=== PATIENT | male | born 1975 ===

== ENCOUNTER 2021-11-18 20:11 | Inpatient (IN) | payer OTHER ==
--- OUTSIDE RECORDS SUMMARY | 2021-11-18 20:15 | XMS REPORT | Continuity of Care Document ---
:1975 Author Organization [facility] t Address [address] [place] [address] [place] [id number] Care Team Providers Name Role Phone PCP, PATIENT DOES NOT HAVE A Primary Care Physician Unavailanisa ROSENTHAL Attending Clinician Unavailable ARIADNA Attending Clinician Unavailable Cornelia PARKINSON Attending Clinician Unavailable Vianey JIMÉNEZ Attending Clinician Unavailable Cornelia PARKINSON Admitting Clinician Unavailable Payers Payer Name Policy Type Policy Number Effective Date Expiration Date S [facility] [id number] 00:00:00 MEDICAID [place] PENDING 2019 2019 PENDING 00:00:00 00:00:00 Problems This patient has no known problems. Allergies, Adverse Reactions, Alerts Allergy Allergy Status Severity Reaction(s) Onset Inactive Treating Comm ents Source Name Type Date Date Clinician NO KNOWN Drug Active [facility] ALLERGIE [facility] Medications This patient has no known medications. Procedures This patient has no known procedures. Encounters Start End Encounter Admission Attending Care Care Encounter Source Date/Time Date/Time Type Type Clinicians Facility Department ID 2020-03-05 2020-03-05 Emergency X ROHAN ROSENTHAL [facility] ERT 1 [id number] [facility] 17:53:15 17:53:15 ROHAN ROSENTHAL [facility] 2020-01-01 2020-01-01 Emergency X TESHA RUST ERT [id number] [facility] 20:31:10 23:55:00 CRISTOPHER [facility] 2019-11-21 2019-11-21 Emergency X JESSY RUST ERT [id number] [facility] 13:01:31 15:30:00 JACKIE [facility] Results This patient has no known results.
[2021-11-18] MEDS ORDERED: MORPHINE 4 MG/ML SYR ONE (20:49)
[2021-11-18] MEDS ORDERED: FAMOTIDINE 20 MG/2 ML VIAL IV ONE (20:49)
[2021-11-18] MEDS ORDERED: ONDANSETRON 4 MG/2 ML VIAL ONE (20:49)
[2021-11-18 20:51] LABS: Protime INR 0.95
[2021-11-18 20:56] LABS: Absolute Lymphocytes (CBC) 3.4 K/uL (0.7-4.9); Hematocrit 45.7 % (39.6-49.0); Lymphocytes % 29.2 % (15.3-44.8); MPV 7.9 fL (7.6-11.3); RBC Red Blood Cell Count 5.09 M/uL (4.33-5.43)
--- NOTE | 2021-11-18 21:24 | RAD REPORT ---
EXAM DESCRIPTION: Dorothy Single View11/18/2021 9:19 pm CLINICAL HISTORY: Chest pain COMPARISON: none FINDINGS: The lungs appear clear of acute infiltrate. The heart is normal size IMPRESSION: No acute abnormalities displayed
[2021-11-18 21:30] LABS: ALT/SGPT 55 U/L (12-78); AST/SGOT 18 U/L (15-37); Albumin 3.7 g/dL (3.4-5.0); Alkaline Phosphatase 102 U/L (45-117); BUN Blood Urea Nitrogen 18 mg/dL (7-18); Bicarbonate 24 mmol/L (21-32); Bilirubin Direct < 0.1 mg/dL (0-0.2); Bilirubin Total 0.3 mg/dL (0.2-1.0); Glucose Level 200 mg/dL (74-106); Lipase 56 U/L (73-393); NT PRO-BNP 49 pg/mL (<125); Potassium 3.6 mmol/L (3.5-5.1); Protein, Total 7.7 g/dL (6.4-8.2); Sodium Level 136 mmol/L (136-145)
[2021-11-18 22:52] LABS: SARS-COV-2 RT PCR POSITIVE (NEGATIVE)
--- NOTE | 2021-11-19 01:09 | EDPHYS ---
Physician Documentation [facility] Name: Sandro Sepulveda Age: 46 yrs Sex: Male : 1975 Arrival Date: 11/18/2021 Time: 20:13 Bed 23 Private MD: ED Physician Levy Pulido HPI: 11/18 20:50 This 46 yrs old Male presents to ER via Ambulatory with complaints of Nausea/Vomiting, cp Chest Pain > 30 y/o, Epigastric Pain. 20:50 The patient or guardian reports chest pain that is located primarily in the substernal cp area, epigastric area. 20:50 Onset: suddenly, today, at 14:00. cp 20:50 The pain radiates to Associated signs and symptoms: Pertinent positives: nausea and cp vomiting, Pertinent negatives: constipation, diarrhea, shortness of breath, testicular pain. The symptoms are described as constant. Duration: The patient or guardian reports a single episode, that is still ongoing, and worsening. Historical: - Allergies: 20:22 No Known Allergies; sf1 - Home Meds: 20:22 atorvastatin 40 mg oral tab [Active]; aspirin 81 mg Oral tab [Active]; sf1 - PMHx: 20:22 DVT; hIGH CHOLESTEROL; sf1 - PSHx: 20:22 None; sf1 - Immunization history:: Flu vaccine is not up to date. - Social history:: Smoking status: Patient denies any tobacco usage or history of. ROS: 20:50 Constitutional: Negative for body aches, chills, fever, poor PO intake. cp 20:50 Cardiovascular: Positive for chest pain, Negative for edema, palpitations. cp 20:50 Eyes: Negative for injury, pain, redness, and discharge. cp 20:50 ENT: Negative for ear pain, sore throat, difficulty swallowing, difficulty handling secretions. 20:50 Respiratory: Negative for cough, shortness of breath, wheezing. 20:50 Abdomen/GI: Positive for abdominal pain, nausea and vomiting, of the epigastric area. 20:50 Back: Positive for radiated pain. 20:50 : Negative for urinary symptoms, testicular pain 20:50 Neuro: Negative for altered mental status, headache, weakness. 20:50 All other systems are negative. Exam: 20:33 ECG was reviewed by the Attending Physician. cp 20:55 Constitutional: The patient appears in no acute distress, alert, awake, cp non-diaphoretic, non-toxic, well developed, well nourished, obese, in obvious pain, uncomfortable. 20:55 Head/Face: Normocephalic, atraumatic. cp 20:55 Eyes: Periorbital structures: appear normal, Conjunctiva: normal, no exudate, no injection, Sclera: no appreciated abnormality, Lids and lashes: appear normal, bilaterally. 20:55 ENT: External ear(s): are unremarkable, Nose: is normal, Mouth: Lips: moist, Oral mucosa: moist, Posterior pharynx: Airway: no evidence of obstruction, patent. 20:55 Neck: ROM/movement: is normal, is supple, without pain, no range of motions limitations. 20:55 Chest/axilla: Inspection: normal, Palpation: is normal, no crepitus, no tenderness. 20:55 Cardiovascular: Rate: tachycardic, Rhythm: regular, Heart sounds: murmur, not appreciated, Edema: is not appreciated, JVD: is not appreciated. 20:55 Respiratory: the patient does not display signs of respiratory distress, Respirations: normal, no use of accessory muscles, no retractions, labored breathing, is not present, Breath sounds: are clear throughout, no decreased breath sounds, no stridor, no wheezing. 20:55 Abdomen/GI: Inspection: obese Bowel sounds: active, all quadrants, Palpation: soft, in all quadrants, moderate abdominal tenderness, in the epigastric area, rebound tenderness, is not appreciated, voluntary guarding, is elicited in the epigastric area. 20:55 Back: CVA tenderness, is absent. 20:55 Neuro: Orientation: to person, place \\T\\ time. Mentation: is normal, Motor: moves all fours, strength is normal, Sensation: is normal. Vital Signs: 20:21 BP 122 / 75; Pulse 100; Resp 22; Temp 97.2(T); Pulse Ox 100% on R/A; Weight 108.86 kg; sf1 Height 5 ft. 7 in. (170.18 cm); Pain 10/10; 21:00 BP 127 / 75; Pulse 75; Resp 18; Pulse Ox 98% on R/A; sm5 22:15 BP 120 / 77; Pulse 71; Resp 17; Pulse Ox 100% on R/A; 5 11/19 01:46 BP 119 / 67; Pulse 75; Resp 20; Pulse Ox 99% on R/A; 5 11/18 20:21 Body Mass Index 37.59 (108.86 kg, 170.18 cm) sf1 MDM: 11/18 20:42 Patient medically screened. cp 21:00 Differential diagnosis: abnormal EKG, acute myocardial infarction, coronary artery cp disease cholecystitis, Cholelithiasis pancreatitis, pneumonia, pneumothorax, pancreatitis, Peptic Ulcer Disease, Perf. Duodenal Ulcer, Perf. Gastric Ulcer, Ureterolithiasis, urinary tract infection. 11/19 00:45 Physician consultation: Dakota Black MD was called at 00:45, was contacted at 00:45, cp regarding consult, patient's condition, and will see patient in inpatient room, later today, would like admission per Dr. Raji Quiros. 01:00 Data reviewed: vital signs, nurses notes, lab test result(s), EKG, radiologic studies, cp CT scan, plain films, ultrasound. 01:00 Test interpretation: by ED physician or midlevel provider: ECG, plain radiologic cp studies. 01:15 Physician consultation: Cuauhtemoc GIBSON was called at 01:05, was contacted at 01:05, cp regarding admission, to the telemetry unit. patient's condition. 11/18 20:32 Order name: Basic Metabolic Panel cp 11/18 20:32 Order name: CBC with Diff; Complete Time: 21:50 cp 11/18 21:50 Interpretation: Normal except: WBC 11.60. cp 11/18 20:32 Order name: LFT's; Complete Time: 21:50 cp 11/19 00:39 Interpretation: Normal except: GLOB 4.0; A/G 0.9. cp 11/18 20:32 Order name: Magnesium; Complete Time: 21:50 cp 11/18 20:32 Order name: NT PRO-BNP; Complete Time: 21:50 cp 11/18 20:32 Order name: PT-INR; Complete Time: 21:50 cp 11/18 20:32 Order name: Troponin HS; Complete Time: 21:50 cp 11/18 20:32 Order name: Lipase; Complete Time: 21:50 cp 11/18 20:32 Order name: Basic Metabolic Panel; Complete Time: 21:50 EDMS 11/19 00:53 Interpretation: Normal except: GLUC 200. 11/18 20:51 Order name: COVID-19/FLU A+B (Document "Date of Onset" if Symptomatic); Complete Time: cp 00:39 11/19 00:39 Interpretation: Reviewed. 11/19 06:13 Order name: Troponin High Sensitivity EDMN 11/19 06:13 Order name: C-Reactive Protein EDMN 11/19 06:13 Order name: Ferritin EDMN 11/19 07:18 Order name: Procalcitonin EDMN 11/18 20:32 Order name: XRAY Chest (1 view); Complete Time: 21:50 11/18 21:52 Order name: CT Aorta for Dissection 11/18 23:39 Order name: US Abdomen Limited: RUQ 11/19 07:58 Order name: Hemoglobin A1c EDMN 11/19 08:01 Order name: Glucose, Ancillary Testing EDMN 11/19 11:31 Order name: Glucose, Ancillary Testing EDMN 11/19 16:40 Order name: Glucose, Ancillary Testing EDMN 11/19 22:20 Order name: Glucose, Ancillary Testing EDMN 11/20 03:24 Order name: CBC with Automated Diff EDMN 11/20 03:52 Order name: Comprehensive Metabolic Panel EDMN 11/20 03:52 Order name: Phosphorus EDMN 11/20 03:52 Order name: Lipid Profile EDMN 11/20 03:52 Order name: T4 Free EDMN 11/20 03:52 Order name: Magnesium EDMN 11/20 03:52 Order name: Thyroid Stimulating Hormone EDMN 11/20 09:01 Order name: Glucose, Ancillary Testing EDMN 11/18 20:24 Order name: EKG - Nurse/Tech; Complete Time: 20:30 sf1 11/18 20:32 Order name: EKG; Complete Time: 20:32 cp 11/18 20:32 Order name: Cardiac monitoring; Complete Time: 20:42 cp 11/18 20:32 Order name: IV Saline Lock; Complete Time: 20:42 11/18 20:32 Order name: Labs collected and sent; Complete Time: 20:43 11/18 20:32 Order name: O2 Per Protocol; Complete Time: 20:43 11/18 20:32 Order name: O2 Sat Monitoring; Complete Time: 20:43 11/19 01:08 Order name: NPO; Complete Time: 01:52 cp 11/19 01:13 Order name: CONS Physician Consult EDMS EC/28 20:33 Rate is 67 beats/min. Rhythm is regular. MT interval is normal. QRS interval is cp prolonged at 102 msec. QT interval is normal. T waves are Inverted in leads III, V4, V5, V6. Interpreted by me. Reviewed by me. Administered Medications: 20:53 Drug: morphine 4 mg Route: IVP; Site: right forearm; sm5 22:19 Follow up: Response: Pain is decreased sm5 20:53 Drug: Zofran (Ondansetron) 4 mg Route: IVP; Site: right forearm; sm5 22:19 Follow up: Response: Vomiting decreased sm5 20:53 Drug: Pepcid (famotidine) 20 mg Route: IVP; Site: right forearm; sm5 22:19 Follow up: Response: No adverse reaction sm5 11/19 01:40 Drug: Zosyn (piperacillin-tazobactam) 3.375 grams Route: IVPB; Infused Over: 60 mins; sm5 Site: right forearm; Disposition: 19:08 Co-signature as Attending Physician, Keron Lott MD. 7 Disposition Summary: 11/19/21 01:09 Hospitalization Ordered Hospitalization Status: Inpatient Admission cp Condition: Stable cp Problem: new cp Symptoms: have improved cp Bed/Room Type: Standard cp Location: [facility] ER HOLD(11/19/21 01:17) Room Assignment: ERHOLD-(11/19/21 01:17) Provider: Raji Quiros(11/19/21 02:51) cp Diagnosis - Chest pain, unspecified cp - Epigastric pain cp Discharge Instructions: - Discharge Summary Sheet lissette Forms: - Medication Reconciliation Form cp - SBAR form cp Prescriptions: - Tylenol-Codeine #3 300 mg-30 mg Oral - take 1 tablet by ORAL route every 6 hours; 15 tablet; Refills: 0, Product lissette Selection Permitted Signatures: [facility] Leonor Melgar RN RN mw Page, Corey, PA PA cp Holmes, Maurice, MD MD 7 Araseli Ball RN RN 5 Tiara Carr RN RN 1 Corrections: (The following items were deleted from the chart) 00:53 11/18 21:50 Normal except: GLUC 200; GFR 82. cp 11/19 01:09 01:09 Acute cholecystitis [facility] : 01:09 Telemetry/MedSurg (Inpatient) [facility] : 01:09 mw 02:51 01:09 Cuauhtemoc Duran cp
--- NOTE | 2021-11-19 01:09 | ER ---
Nurse's Notes [facility] Name: Sandro Sepulveda Age: 46 yrs Sex: Male : 1975 Arrival Date: 11/18/2021 Time: 20:13 Bed 23 Private MD: Diagnosis: Chest pain, unspecified;Epigastric pain Presentation: 11/18 20:21 Chief complaint: Patient states: pain in the middle of the chest started at 2pm and sf1 radiates around the back. Coronavirus screen: Vaccine status: Patient reports receiving the 2nd dose of the covid vaccine. Client denies travel out of the [place] in the last 14 days. Ebola Screen: Patient negative for fever greater than or equal to 101.5 degrees Fahrenheit, and additional compatible Ebola Virus Disease symptoms Patient denies exposure to infectious person. Patient denies travel to an Ebola-affected area in the 21 days before illness onset. Initial Sepsis Screen: Does the patient meet any 2 criteria? No. Patient's initial sepsis screen is negative. Does the patient have a suspected source of infection? No. Patient's initial sepsis screen is negative. Risk Assessment: Do you want to hurt yourself or someone else? Patient reports no desire to harm self or others. Onset of symptoms was November 18, 2021 at 14:00. 20:21 Method Of Arrival: Ambulatory 1 20:21 Acuity: LATA 3 sf1 Triage Assessment: 20:22 General: Appears uncomfortable, Behavior is cooperative, appropriate for age, restless. sf1 Pain: Complains of pain in mid-sternal area. GI: Reports nausea, vomiting. Historical: - Allergies: 20:22 No Known Allergies; sf1 - Home Meds: 20:22 atorvastatin 40 mg oral tab [Active]; aspirin 81 mg Oral tab [Active]; sf1 - PMHx: 20:22 DVT; hIGH CHOLESTEROL; sf1 - PSHx: 20:22 None; sf1 - Immunization history:: Flu vaccine is not up to date. - Social history:: Smoking status: Patient denies any tobacco usage or history of. Screenin:24 Abuse screen: Denies threats or abuse. Nutritional screening: No deficits noted. sf1 Tuberculosis screening: No symptoms or risk factors identified. Fall Risk None identified. Assessment: 20:58 General: Appears in no apparent distress. Behavior is cooperative. Pain: Complains of sm5 pain in chest and mid-sternal area, back. Neuro: No deficits noted. Level of Consciousness is awake, alert, Oriented to person, place, time, situation. Cardiovascular: Reports chest pain, nausea, vomiting. Respiratory: No deficits noted. Airway is patent Trachea midline Respiratory effort is even, labored. GI: Abdomen is obese, Pt is actively vomiting Abdomen is tender to palpation. 22:03 Reassessment: Patient states symptoms have improved. 5 23:05 Reassessment: No changes from previously documented assessment. sm5 11/19 00:03 Reassessment: No changes from previously documented assessment. Patient and/or family 5 updated on plan of care and expected duration. Pain level reassessed. 01:21 Reassessment: No changes from previously documented assessment. 5 Vital Signs: 11/18 20:21 BP 122 / 75; Pulse 100; Resp 22; Temp 97.2(T); Pulse Ox 100% on R/A; Weight 108.86 kg; sf1 Height 5 ft. 7 in. (170.18 cm); Pain 10/10; 21:00 BP 127 / 75; Pulse 75; Resp 18; Pulse Ox 98% on R/A; sm5 22:15 BP 120 / 77; Pulse 71; Resp 17; Pulse Ox 100% on R/A; sm5 11/19 01:46 BP 119 / 67; Pulse 75; Resp 20; Pulse Ox 99% on R/A; sm5 11/18 20:21 Body Mass Index 37.59 (108.86 kg, 170.18 cm) sf1 ED Course: 11/18 20:13 Patient arrived in ED. wm 20:22 Triage completed. sf1 20:22 Arm band placed on. sf1 20:30 Tiara Carr RN is Primary Nurse. sf1 20:31 Levy Galeas PA is PHCP. cp 20:31 Keron Lott MD is Attending Physician. cp 20:38 Inserted saline lock: 20 gauge in right forearm, using aseptic technique. Blood 5 collected. 20:42 Basic Metabolic Panel Sent. ww 20:42 Basic Metabolic Panel Sent. ww 20:43 CBC with Diff Sent. ww 20:43 LFT's Sent. ww 20:43 Magnesium Sent. ww 20:43 NT PRO-BNP Sent. ww 20:43 PT-INR Sent. ww 20:43 Troponin HS Sent. ww 20:44 Lipase Sent. ww 21:00 Patient has correct armband on for positive identification. Bed in low position. Call [facility] light in reach. Side rails up X2. 21:00 sports book writer on. Pulse ox on. NIBP on. [facility] 21:18 XRAY Chest (1 view) In Process Unspecified. EDMS 22:54 CT Aorta for Dissection In Process Unspecified. EDMS 11/19 00:24 US Abdomen Limited: RUQ In Process Unspecified. EDMS 01:08 Cuauhtemoc Duran PA is Hospitalizing Provider. cp 01:42 No provider procedures requiring assistance completed. [facility] 02:51 Hospitalizing Provider role handed off by Cuauhtemoc Duran PA 02:51 Raji Quiros is Hospitalizing Provider. cp 09:34 INTERPRET ARGENTINE - SAMOAN. [facility] 09:36 Warm blanket given. [facility] 11/20 07:08 Primary Nurse role handed off by Tiara Carr RN 09:26 Attending Physician role handed off by Keron Lott MD [facility] 09:26 Levy Pulido MD is Attending Physician. [facility] 10:02 TRANSLATED FOR NURSE DISCHARGE INSTRUCTION. [facility] Administered Medications: 11/18 20:53 Drug: morphine 4 mg Route: IVP; Site: right forearm; 5 22:19 Follow up: Response: Pain is decreased 5 20:53 Drug: Zofran (Ondansetron) 4 mg Route: IVP; Site: right forearm; 5 22:19 Follow up: Response: Vomiting decreased [facility] 20:53 Drug: Pepcid (famotidine) 20 mg Route: IVP; Site: right forearm; 5 22:19 Follow up: Response: No adverse reaction [facility] 11/19 01:40 Drug: Zosyn (piperacillin-tazobactam) 3.375 grams Route: IVPB; Infused Over: 60 mins; [facility] Site: right forearm; Outcome: 01:09 Decision to Hospitalize by Provider. 11/20 10:21 Patient left the ED. ll1 Signatures: Dispatcher [employer] [facility] Levy Pulido MD MD cha Page, Corey, PA [place] Kaela Perez [facility] Mirela Malone Lynsay, RN RN ll1 Emani Antonio Sarah, RN RN sm5 Sanjana Rocha, RN RN ww Tiara Carr, RN RN sf1
[2021-11-19] MEDS ORDERED: NA CHLORIDE 0.9% 100 ML ONE ×3 (01:37→16:58)
[2021-11-19] MEDS ORDERED: PIPERACIL/TAZO 3.375 GM VIAL IV ONE ×3 (01:37→16:58)
--- NOTE | 2021-11-19 03:11 | P.HP ---
Certification for Inpatient Patient admitted to: Inpatient With expected LOS: <2 Midnights Patient will require the following post-hospital care: None Practitioner: I am a practitioner with admitting privileges, knowledge of patient current condition, hospital course, and medical plan of care. Services: Services provided to patient in accordance with Admission requirements found in Title 42 Section 412.3 of the Code of Federal Regulations Patient History Date of Service: 11/19/21 Primary Care Provider: Toshia Reason for admission: cholecystitis, COVID History of Present Illness: Mr. Venus Miles is a 46 yo M with HLD and history of DVT who presents with severe epigastric pain beginning today at 2pm. He also reports nausea and vomiting. Around 5pm, the pain subsided so he ate, and then the pain returned. Denies fever. At bedside, pain is well controlled after receiving morphine. WBC 11.6 Glu 200. RUQ US shows gallbladder wall thickening. Patient is COVID+ - Past Medical/Surgical History -: HLD -: DVT 2020 Past Surgical History: Patient denies surgical history - Social History Smoking Status: Never smoker Alcohol use: No CD- Drugs: No Caffeine use: No Place of Residence: Home Review of Systems 10-point ROS is otherwise unremarkable General: Unremarkable Eyes: Unremarkable ENT: Unremarkable Respiratory: Unremarkable Cardiovascular: Unremarkable Gastrointestinal: Nausea, Vomiting, Abdominal Pain Genitourinary: Unremarkable Musculoskeletal: Unremarkable Integumentary: Unremarkable Neurological: Unremarkable Lymphatics: Unremarkable Physical Examination - Physical Exam General: Alert, In no apparent distress HEENT: Atraumatic, PERRLA, Mucous membr. moist/pink, EOMI, Sclerae nonicteric Neck: Supple, 2+ carotid pulse no bruit, No LAD, Without JVD or thyroid abnormality Respiratory: Clear to auscultation bilaterally, Normal air movement Cardiovascular: Regular rate/rhythm, Normal S1 S2 Gastrointestinal: Normal bowel sounds, Tenderness Musculoskeletal: No tenderness Integumentary: No rashes Neurological: Normal speech, Normal strength at 5/5 x4 extr, Normal tone, Normal affect Lymphatics: No axilla or inguinal lymphadenopathy - Studies Laboratory Data (last 24 hrs) 11/18/21 20:40: PT 10.9, INR 0.95 11/18/21 20:40: WBC 11.60 H, Hgb 15.3, Hct 45.7, Plt Count 198 11/18/21 20:40: Sodium 136, Potassium 3.6, BUN 18, Creatinine 0.98, Glucose 200 H, Magnesium 2.0, Total Bilirubin 0.3, AST 18, ALT 55, Alkaline Phosphatase 102, Lipase 56 L Assessment and Plan - Problems (Diagnosis) (1) COVID Current Visit: Yes Status: Acute (2) Acute cholecystitis Current Visit: Yes Status: Acute - Plan surgery consulted NPO continue IV fluids and IV zosyn pain management as needed currently asymptomatic from COVID, patient has been vaccinated, check daily CRP, ferritin, procal A1c pending, sliding scale and accuchecks DVT ppx Discharge Plan: Home Plan to discharge in: 48 Hours - Advance Directives Does patient have a Living Will: No Does patient have a Durable POA for Healthcare: No - Code Status/Comfort Care Code Status Assessed: Yes (full code ) Critical Care: No Time Spent Managing Pts Care (In Minutes): 70
[2021-11-19] MEDS: NA CHLORIDE 0.9% 1,000 ML IV SCH ×2 (04:53→14:53)
[2021-11-19] MEDS ORDERED: ONDANSETRON 4 MG/2 ML VIAL IV PRN (04:53)
[2021-11-19] MEDS ORDERED: ACETAMINOPHEN 500 MG TAB PO PRN (04:53)
[2021-11-19] MEDS: PIPER TAZO 3.375 GM in NA CHLORIDE 0.9% 100 ML IV SCH ×2 (05:00→17:00)
[2021-11-19] MEDS ORDERED: NA CHLORIDE 0.9% 1,000 ML ONE ×2 (05:19→13:17)
[2021-11-19 06:12] LABS: C-Reactive Protein < 2.90 mg/L (<3.00); Ferritin 214.8 ng/mL (26-388)
[2021-11-19] MEDS: INSULIN -REGULAR HUMAN 50 UNIT/0.5 ML ML SQ SCH ×4 (07:30→22:10)
--- NOTE | 2021-11-19 11:23 | CON ---
Date of Consultation: 11/19/2021 Brief Hpi: The patient is a 46-year-old male with a history of hyperlipidemia, DVT in the left lower extremity over 1 year ago, treated with only oral anticoagulation for 6 months, now on no anticoagul ation, who presents after having episodes of nausea, vomiting, and pain beginning approximately a day and half to two days ago. He states that whenever he would eat breakfast, he would get this sharp s tabbing epigastric right upper quadrant pain which radiated to the right upper quadrant. He stopped eating for a while. The pain got significantly better after several hours and he attempted to eat a hamburger, which recurred the pain significantly worse and predominantly located in the right upper q uadrant with radiation through to the back and epigastrium. It is associated with nausea, vomiting, and as such, he came to the hospital with the above-stated complaints. Since being in the hospital, his pain has improved, but still significant and with profound discomfort while resting in the right upper quadrant predominantly now. Past Medical History: Significant for hyperlipidemia and DVT in 2019, treated with oral anticoagulat ion for 6 months, now no longer taking anticoagulation. Past Surgical History: Denies. Social History: He denies smoking, alcohol, or recreational drug use. Review of Systems: Ten-point review of systems other than HPI, denies. Medications: He takes medication for hyperlipidemia but cannot recall what this is specifically. Physical Examination: Vital Signs: At the time of my examination, his BMI is 37.6, blood pressure 133/80, pulse 71, respir atory rate 17, temperature 97.8, SpO2 99% on room air. General: He is awake, alert, and oriented. Psychiatric: He is appropriate, conversive. HEENT: He is normocephalic. Sclerae anicteric. Mucous membranes are moist. Oropharynx is clear. Neck: Supple without JVD. Chest: Normal expansion and excursion. Cardiovascular: Regular rate and rhythm. Pulmonary: Clear to auscultation bilaterally. Abdomen: Soft with positive epigastric and right upper quadrant tenderness to palpation. Mild posit roula Onofre sign on the right upper quadrant. The remainder of his abdominal exam is unremarkable oth er than obese. Extremities: No clubbing, cyanosis, edema. Skin: Warm and dry. Laboratory Exam: White blood cell count 11.6, hemoglobin 15.3, hematocrit of 45.7, platelet count is 198, neutrophils are 63%. His PT 10.9, INR 0.95. Sodium 136, potassium 3.6, chloride 103, carbon d ioxide 24, BUN 18, creatinine 0.9, glucose is 200. Hemoglobin A1c is 5.9. Calcium 8.6, magnesium 2. 0. Total bilirubin 0.3, direct component 0.1, AST 18, ALT 55, alkaline phosphatase 102. Troponin wa s 11.8 and 15.7. C-reactive protein less than 2.9. His procalcitonin was less than 0.05. His lipas e is 56. He is positive for COVID by PCR. He had imaging performed, which included an abdominal ult rasound, officially read as suspected sludge within the gallbladder with fluid adjacent to the gallbl adder. Findings suspicious for developing acute cholecystitis. He had a CT of the abdomen and pelvi s as well, angio protocol, officially read as no evidence for thoracic or abdominal aortic aneurysm o r dissection, patchy multifocal ground-glass opacities with lower lobe predominance, atelectasis and/ or infiltrate, top normal gallbladder wall thickness, questionable trace pericholecystic fluid, no ca lcified gallstones. Consider right upper quadrant ultrasound for further evaluation. Other findings noted. He has a small tiny fat containing umbilical hernia. Assessment And Plan: This is a 46-year-old male who presents with signs and symptoms of acute cholec ystitis. 1.IV fluid hydration. 2.Antibiotic coverage with Zosyn 3.375 IV q.6 h. 3.I have explained the risks, benefits, and alternatives of laparoscopic possible open cholecystecto my with ICG indocyanine green cholangiography, including but not limited to, bleeding, infection, dam age to surrounding tissues, injury to bile ducts, intestines, need for further operation procedures, difficulty and trouble with injected materials and agents. 4.Ongoing medical treatment or additional surgical procedures. Glassware Defect Repairer was present throughout m y entire interaction with the patient. All questions were answered. The patient's is present a s well throughout the interaction. They agreed to proceed as indicated. Thank you for this interesting consult. LAZARA/KATHIA Voice ID: [id number] Report ID: [id number]
[2021-11-19] MEDS ORDERED: PIPER TAZO 3.375 GM in NA CHLORIDE 0.9% 100 ML IV ONE (11:45)
[2021-11-19] MEDS ORDERED: propofoL 200 MG/20 ML VIAL IV ONE (12:04)
[2021-11-19] MEDS ORDERED: FENTANYL CITR 100 MCG/2 ML ONE ×2 (12:04→13:50)
[2021-11-19] MEDS ORDERED: dexAMETHasone 4 MG/ML VIAL ONE (12:05)
[2021-11-19] MEDS ORDERED: NEOSTIGMINE 1 MG/ML -5 ML ONE (12:05)
[2021-11-19] MEDS ORDERED: LIDOCAINE 1% MPF 5 ML VIAL ONE (12:05)
[2021-11-19] MEDS ORDERED: GLYCOPYRROLATE 0.2 MG/ML SYR ONE (12:05)
[2021-11-19] MEDS ORDERED: MORPHINE 10 MG/ML VIAL ONE (12:06)
[2021-11-19] MEDS ORDERED: KETOROLAC 30 MG/ML INJ ONE (12:06)
[2021-11-19] MEDS ORDERED: ROCURONIUM 50 MG/5 ML VIAL IV ONE (12:06)
[2021-11-19] MEDS ORDERED: MIDAZOLAM HCL 2 MG/2 ML INJ ONE (12:07)
[2021-11-19] MEDS ORDERED: ONDANSETRON 4 MG/2 ML VIAL ONE (12:07)
[2021-11-19] MEDS: BUPIVACAINE 0.25% PF 10 ML VIAL ONE ×2 (12:07→12:32)
--- NOTE | 2021-11-19 13:19 | P.PN ---
Date of Service: 11/19/21 Patient with no known medical history except hyperlipidemia. States his pain is well controlled at the moment. Seen by Dr. Black and plan for laparoscopic cholecystectomy today. Vitals are stable, blood work unremarkable. Continue supportive measures. Continue antibiotics.
--- NOTE | 2021-11-19 13:19 | P.OP ---
[employer] Admin: Wes Choi Preoperative diagnosis: Acute Cholecystitis Postoperative diagnosis: Acute Cholecystitis Primary procedure: Laparoscopic Cholecystectomy with ICG Cholangiography Anesthesia: GETA + Local Estimated blood loss: <10cc Specimen: Gallbladder Findings: Distended Tense GB, inflammatoin Complications: None Transferred to: Recovery Room Condition: Good
[2021-11-19] MEDS ORDERED: HYDROCODONE/APAP 5/325 MG TAB PO PRN (13:57)
[2021-11-19 14:01] VITALS: O2SAT 97
[2021-11-19] MEDS ORDERED: PIPER TAZO 3.375 GM in NA CHLORIDE 0.9% 100 ML IV SCH (15:00)
--- NOTE | 2021-11-20 | OP ---
Date of Procedure: 11/19/2021 Surgeon: Dakota Black MD, Preoperative Diagnosis: Acute cholecystitis. Postoperative Diagnosis: Acute cholecystitis. Procedure Performed: Laparoscopic cholecystectomy with ICG Indocyanine green cholangiography. Anesthesia: General endotracheal plus local with 0.5% Marcaine without epinephrine. Estimated Blood Loss: Less than 10 mL. Specimen: Gallbladder. Findings: Distended tense gallbladder with significant inflammation. Complications: The patient had no complications, transferred to recovery room in good condition. Procedure In Detail: After informed consent was obtained, patient was brought to the operating room, prepped in the usual sterile fashion after adequate anesthesia achieved. A supraumbilical area was anesthetized with 0.25% Marcaine, sharply incised. A 5 mm 0 degree optical trocar was introduced in the abdomen without complication. Insufflation obtained to 15 mmHg at this time. The abdomen was in spected. The gallbladder found to be quite tense and distended. Obviously at this point, the patien t positioned head up position. I then brought an additional trocar in the epigastrium. This was rajendra larly anesthetized, sharply incised, a 5 mm trocar placed under direct visualization without evidence of complication. The umbilical trocar was then up-sized to 12 mm under direct visualization without evidence of complication. Additional trocar placed in the right upper quadrant. This was similarly anesthetized and sharply incised and a 5 mm trocar placed under direct visualization without evidenc e of complication. Position was head up right-side up position. At this point, ratcheted graspers w ere attempted to grasp the patient's gallbladder, unsuccessful because of the tense distended nature of the gallbladder. As such, I brought in a decompression needle with decompression of the gallbladd er at the fundus of the gallbladder. After gallbladder was completely decompressed, I was able to gr asp the gallbladder, placed towards the patient's right shoulder. Dissection continued down the Hartm alayna's pouch to expose 2 structures identified as both the cystic duct and cystic artery. ICG cholang iography confirmed the position of the common duct and cystic duct junction. At this point, I then d issected circumferentially around completely skeletonized 2 structures. ICG cholangiography confirme d position once last time. I then placed double titanium clips on the proximal side and singly on th e distal side of both cystic duct and cystic artery. At this point, I used Endoshears to ligate thes e 2 structures after the critical view of safety was obtained. At this point, I removed the gallblad kitty from the hepatic fossa with minimal bleeding from the proximal aspect of the hepatic fossa. A si ngle clip was placed on an aberrant vessel off the liver bed with good hemostasis with minimal blood loss. This was a posterior feeding vessel to the gallbladder which was very small in size. It was c lipped successfully and then I fulgurated the remaining surrounding areas and removed the gallbladder from the hepatic fossa. This had been placed in EndoCatch bag, removed the umbilical trocar, sent o ff pathologic examination. I then reinsufflated the abdomen, completely irrigated copiously multiple times and suctioned out all until completely dry. I then inspected the hepatic fossa and closed for being in good anatomic position which was verified at this point. No additional hemostat was requir ed. I checked the patient under desufflation pressure. At this point, I lowered the liver back to [facility] normal anatomic position. I then sucked out the remaining effluent position, patient back in neut ral position, sucked out the remaining effluent, was found to be clear at this point. I then closed the umbilical trocar site using a [place] suture passer with a 0 Vicryl in interrupted fashio n with good approximation of tissues. The remaining trocars removed. The abdomen was desufflated und er direct visualization without evidence of complication. All skin incisions were then copiously irri gated and closed with a 4-0 Monocryl fashion. Dermabond placed over the top. The patient tolerated the procedure well without evidence of complication, transferred to PACU in good condition. All counts were correct at end of t case. TK/MODL Voice ID: [id number] Report ID: [id number]
[2021-11-20] MEDS: NA CHLORIDE 0.9% 1,000 ML IV SCH (00:53)
[2021-11-20 03:21] LABS: Absolute Lymphocytes (CBC) 1.8 K/uL (0.7-4.9); Hematocrit 44.2 % (39.6-49.0); Lymphocytes % 18.1 % (15.3-44.8); MPV 8.1 fL (7.6-11.3); RBC Red Blood Cell Count 4.88 M/uL (4.33-5.43)
[2021-11-20 03:51] LABS: ALT/SGPT 93 U/L (12-78); AST/SGOT 35 U/L (15-37); Albumin 3.1 g/dL (3.4-5.0); Alkaline Phosphatase 87 U/L (45-117); BUN Blood Urea Nitrogen 16 mg/dL (7-18); Bicarbonate 26 mmol/L (21-32); Bilirubin Total 0.6 mg/dL (0.2-1.0); Glucose Level 111 mg/dL (74-106); HDL Cholesterol 33 mg/dL (40-60); LDL Cholesterol, Calculated 215 (<130); Magnesium 2.3 mg/dL (1.8-2.4); Phosphorus 4.3 mg/dL (2.5-4.9); Protein, Total 6.7 g/dL (6.4-8.2); Sodium Level 138 mmol/L (136-145); Thyroid Stimulating Hormone 0.468 uIU/mL (0.360-3.740)
[2021-11-20] MEDS: PIPER TAZO 3.375 GM in NA CHLORIDE 0.9% 100 ML IV SCH (05:00)
[2021-11-20] MEDS ORDERED: PIPERACIL/TAZO 3.375 GM VIAL IV ONE (05:15)
[2021-11-20] MEDS ORDERED: NA CHLORIDE 0.9% 100 ML ONE ×2 (05:16→05:19)
[2021-11-20] MEDS ORDERED: NA CHLORIDE 0.9% 1,000 ML ONE (05:16)
[2021-11-20 07:00] VITALS: BMI 37.5
[2021-11-20 07:03] VITALS: BP 112/75; TEMP 98.5
[2021-11-20] MEDS: INSULIN -REGULAR HUMAN 50 UNIT/0.5 ML ML SQ SCH (07:30)
[2021-11-20] MEDS ORDERED: HYDROCODONE/APAP 5/325 MG TAB ONE (08:54)
--- NOTE | 2021-11-20 08:57 | P.DS ---
Admission Date: 11/19/21 Discharge Date: 11/20/21 Primary Care Provider: Toshia Disposition: ROUTINE DISCHARGE Discharge Condition: GOOD Reason for Admission: cholecystitis, COVID - Problems (1) COVID-19 virus infection Status: Acute (2) Acute cholecystitis Status: Acute Brief History of Present Illness: Mr. Venus Miles is a 46 yo M with HLD and history of DVT who presents with severe epigastric pain beginning today at 2pm. He also reports nausea and vomiting. Pain precipitated by meals. Denied fever. WBC 11.6 Glu 200. RUQ US shows gallbladder wall thickening. Patient is COVID+. General surgery Dr. Black informed and patient admitted for further management. Hospital Course: Patient admitted to the medical floor. Dr. Black performed lap cholecystectomy with Intra-Op cholangiogram which was uneventful. Patient monitored overnight with no issues. He is deemed stable for discharge per Dr. Black. Vital Signs/Physical Exam: Temp Pulse Resp BP Pulse Ox 98.5 F 82 18 112/75 96 11/20/21 04:00 11/20/21 04:00 11/20/21 04:00 11/20/21 04:00 11/20/21 00:00 General: Alert, In no apparent distress, Oriented x3 HEENT: Mucous membr. moist/pink Neck: JVD not distended Respiratory: Clear to auscultation bilaterally, Normal air movement Cardiovascular: No edema, Regular rate/rhythm, Normal S1 S2 Gastrointestinal: Soft and benign, W/out succussion splash, Other (Laparoscopic wounds dressed) Musculoskeletal: No swelling Integumentary: No rashes Neurological: Normal strength at 5/5 x4 extr Laboratory Data at Discharge: WBC 9.70 K/uL (4.3-10.9) D 11/20/21 02:49 Hgb 14.5 g/dL (13.6-17.9) 11/20/21 02:49 Hct 44.2 % (39.6-49.0) 11/20/21 02:49 Plt Count 189 K/uL (152-406) 11/20/21 02:49 PT 10.9 SECONDS (9.5-12.5) 11/18/21 20:40 INR 0.95 11/18/21 20:40 Sodium 138 mmol/L (136-145) 11/20/21 02:49 Potassium 4.0 mmol/L (3.5-5.1) 11/20/21 02:49 BUN 16 mg/dL (7-18) 11/20/21 02:49 Creatinine 0.76 mg/dL (0.55-1.3) 11/20/21 02:49 Glucose 111 mg/dL (74-106) H 11/20/21 02:49 Phosphorus 4.3 mg/dL (2.5-4.9) 11/20/21 02:49 Magnesium 2.3 mg/dL (1.8-2.4) 11/20/21 02:49 Total Bilirubin 0.6 mg/dL (0.2-1.0) 11/20/21 02:49 AST 35 U/L (15-37) 11/20/21 02:49 ALT 93 U/L (12-78) H 11/20/21 02:49 Alkaline Phosphatase 87 U/L (45-117) 11/20/21 02:49 Triglycerides 97 mg/dL (<150) 11/20/21 02:49 Cholesterol 267 mg/dL (<200) H 11/20/21 02:49 HDL Cholesterol 33 mg/dL (40-60) L 11/20/21 02:49 Cholesterol/HDL Ratio 8.09 11/20/21 02:49 Lipase 56 U/L (73-393) L 11/18/21 20:40 Home Medications: Atorvastatin Calcium [Lipitor] 80 mg PO BEDTIME 11/19/21 Codeine/APAP [Tylenol W/Codeine #3 tab] 1 tab PO Q6HP PRN #30 tab 11/20/21 New Medications: Codeine/APAP [Tylenol W/Codeine #3 tab] 1 tab PO Q6HP PRN #30 tab PRN Reason: Pain Diet: [place] Activity: No lifting more than 10 lbs Followup: Dakota Black MD [ACTIVE - CAN ADMIT] - Unknown,U [Primary Care Provider] - Time spent managing pt's care (in minutes): 33
--- NOTE | 2021-11-20 21:56 | RAD REPORT ---
EXAM DESCRIPTION: CT - Angio Aorta For Dissection - 11/19/2021 6:25 am CLINICAL HISTORY: Abdominal pain; Chest pain TECHNIQUE: Axial computed tomographic angiography images of the chest, abdomen and pelvis with intra venous contrast. Sagittal and coronal reformatted images were created and reviewed. This CT exam was performed using one or more of the following dose reduction techniques: automated exposure cont rol, adjustment of the mA and/or kV according to patient size, and/or use of iterative reconstruction technique. MIP reconstructed images were created and reviewed. COMPARISON: No relevant prior studies available. FINDINGS: VASCULATURE: Aorta: Minimal atherosclerotic disease. No evidence for abdominal aortic aneurysm or dissection. Pulmonary arteries: No central or proximal segmental pulmonary arterial filling defects. Great vessels of aortic arch: No acute findings. No dissection. No arterial occlusion or signif icant stenosis. Celiac trunk and mesenteric arteries: No acute findings. No occlusion or significant stenosis. Renal arteries: No acute findings. No occlusion or significant stenosis. Iliac arteries: No acute findings. No occlusion or significant stenosis. CHEST: Lungs: Patchy groundglass opacities within the right greater than left lower lobes and minimally wi thin the bilateral upper lobes. Pleural space: Unremarkable. No significant effusion. No pneumothorax. Heart: Unremarkable. No cardiomegaly. No significant pericardial effusion. ABDOMEN: Liver: The liver is enlarged and diffusely low in density compatible with steatosis. Gallbladder and bile ducts: The gallbladder wall is top normal in thickness. No calcified gallstone s. Possible trace pericholecystic fluid. No ductal dilation. Pancreas: Unremarkable. No ductal dilation. No mass. Spleen: Unremarkable. No splenomegaly. Adrenals: Unremarkable. No mass. Kidneys and ureters: Unremarkable. No hydronephrosis. No solid mass. Stomach and bowel: Unremarkable. No obstruction. No mucosal thickening. PELVIS: Appendix: No findings to suggest acute appendicitis. Bladder: Unremarkable. No mass. Reproductive: Unremarkable as visualized. CHEST, ABDOMEN and PELVIS: Intraperitoneal space: Unremarkable. No significant fluid collection. No free air. Bones/joints: Multilevel spondylosis. No acute fracture. No dislocation. Soft tissues: Tiny fat-containing umbilical hernia. Lymph nodes: Unremarkable. No enlarged lymph nodes. IMPRESSION: 1. No evidence for thoracic or abdominal aortic aneurysm or dissection. 2. Patchy multifocal groundglass opacities with a lower lobe predominance (atelectasis and/or infil trate). 3. Top normal gallbladder wall thickness. Questionable trace pericholecystic fluid. No calcified ga llstones. Consider right upper quadrant ultrasound for further evaluation as clinically warranted. 4. Other findings as above. Electronically signed by: Janey Marie MD 11/18/2021 11:22 PM LONGITUDINAL FLOAT OPERATOR Due to temporary technical issues with the PACS/Fluency reporting system, reports are being signed by the in house radiologists without review as a courtesy to insure prompt reporting. The interpreting radiologist is fully responsible for the content of the report.
--- NOTE | 2021-11-20 21:58 | RAD REPORT ---
EXAM DESCRIPTION: US - Abdomen Exam Limited - 11/19/2021 12:23 am CLINICAL HISTORY: 46 years Male EPIGASTRIC PAIN COMPARISON: None TECHNIQUE: Real-time sonography of the right upper abdomen was performed. FINDINGS: Echogenic foci within gallbladder is thought to represent sludge. No definite gallstones s een. Gallbladder wall measured 3 mm. Common bile duct measured 3 mm. Suspected fluid adjacent to the gallbladder. . Fold in region of the neck of gallbladder. IMPRESSION: Suspected sludge within gallbladder with fluid adjacent to the gallbladder. Findings jerman picious for developing acute cholecystitis. Electronically signed by: Dorita Jones MD 11/19/2021 3:17 AM NEUROSCIENCE SPECIALIST Due to temporary technical issues with the PACS/Fluency reporting system, reports are being signed by the in house radiologists without review as a courtesy to insure prompt reporting. The interpreting radiologist is fully responsible for the content of the report.
== END 2021-11-20 10:11 | disposition home or self-care (01) | DRG 417 ==
LOC: ER 20:11 → ERHOLD 11-19 01:57
PROVIDERS: ADMIT Internal Medicine; ATTEND Internal Medicine
PROC: BF031ZZ Plain Radiography of Gallbladder and Bile Ducts using Low Osmolar Contrast (ICD-10-PCS; 2021-11-19)
PROC: 0FT44ZZ Resection of Gallbladder, Percutaneous Endoscopic Approach (ICD-10-PCS; principal; 2021-11-19 12:30)
DX: K81.0 Acute cholecystitis (principal); U07.1 COVID-19; E78.5 Hyperlipidemia, unspecified; Z79.82 Long term (current) use of aspirin; Z79.899 Other long term (current) drug therapy; Z86.718 Personal history of other venous thrombosis and embolism
CPT/HCPCS: 0240U; 36415; 71045; 71275; 74175; 76705; 80048; 80053; 80061; 80076; 82728; 82947; 83036; 83690; 83735; 83880; 84100; 84145; 84439; 84443; 84484; 85025; 85610; 86140; 88304; 96374; 96375; 99284; J1100; J2250; J2405; J2543; J2704; J2710; J3010; J7030; Q9967